=== PATIENT | female | born 1960 | race Two or more races ===

== ENCOUNTER 2022-11-03 19:38 | Emergency (ER) | payer OTHER, MEDICAID ==
[~2022-11-03] VITALS: Ht 167.6 cm; Wt 104.5 kg
[2022-11-03] MEDS ORDERED: diphenhdrAMINE HCL 50 MG/1 ML VL ONE (19:58)
[2022-11-03 19:59] VITALS: BP 89/46; PULSE 103; RESP 12; O2SAT 96
[2022-11-03] MEDS ORDERED: diphenhdrAMINE HCL 50 MG/1 ML VL IV ONE (20:00)
[2022-11-03] MEDS ORDERED: EPINEPHrine HCL 1 MG/1 ML AMP ONE (20:00)
[2022-11-03] MEDS ORDERED: EPINEPHrine HCL 0.5 ML NEB NEB ONE (20:00)
[2022-11-03] MEDS ORDERED: EPINEPHrine HCL 1 MG/1 ML AMP IM ONE (20:00)
[2022-11-03] MEDS ORDERED: DexAMETHasone SOD PHOS 10MG/1ML VIAL INJ IV ONE (20:00)
[2022-11-03 20:22] VITALS: RESP 20; O2SAT 95
[2022-11-03 20:29] LABS: Basophils # (auto) 0.1 10 ^3/uL (0-0.2); Basophils % (auto) 0.8 % (0.0-2.0); Eosinophils # (auto) 0.2 10 ^3/uL (0-0.8); Eosinophils % (auto) 1.8 % (0.0-7.0); Hematocrit 33.3 % (36.0-46.0); Hemoglobin 11.3 g/dL (12.2-16.2); Lymphocytes # (auto) 1.9 10 ^3/uL (0.4-5.4); Lymphocytes % (auto) 23.2 % (10.0-50.0); Mean Corpuscular Hgb Conc. 33.9 g/dL (32.0-36.0); Mean Corpuscular Volume 91.5 fL (80.0-100.0); Monocytes # (auto) 0.5 10 ^3/uL (0-1.3); Monocytes % (auto) 6.3 % (0.0-12.0); Neutrophils # (auto) 5.6 10 ^3/uL (1.6-8.6); Neutrophils % (auto) 67.9 % (37.0-80.0); Red Blood Cells 3.64 10^6/uL (4.0-5.20); Red Cell Distribution Width 14.9 % (11.8-14.3); White Blood Cell 8.2 10^3/uL (4.4-10.8)
[2022-11-03] MEDS ORDERED: ROCURONIUM 10MG/ML 10ML VIAL IV ONE (20:33)
[2022-11-03] MEDS ORDERED: fentaNYL Drip 2500mCg/250mlNS 250 ML IV ONE (20:34)
[2022-11-03] MEDS ORDERED: KETAMINE HCL 10 ML ONE (20:34)
[2022-11-03 20:38] LABS: Albumin 3.4 g/dL (3.4-5.0); Potassium 3.9 mmol/L (3.5-5.1)
[2022-11-03] MEDS ORDERED: NOREPINEPHRINE 8 MG/250ML KIT 250 ML IV ONE (20:41)
[2022-11-03 20:43] LABS: BUN/Creatinine Ratio 16.7 (10.0-20.0); Bilirubin, Total 0.3 mg/dL (0.2-1.0); Total Protein 7.8 g/dL (6.4-8.2)
[2022-11-03] MEDS ORDERED: SODIUM BICARBONATE 8.4% INJ 50ML SYRINGE ONE ×2 (21:02→21:15)
[2022-11-03] MEDS ORDERED: EPINEPHrine HCL 1 MG/10 ML SYRG ONE ×4 (21:15→21:35)
== END 2022-11-04 02:08 ==
LOC: ER 19:41
DX: R06.02 Shortness of breath (principal); K14.0 Glossitis; I10 Essential (primary) hypertension; E11.9 Type 2 diabetes mellitus without complications; Z88.0 Allergy status to penicillin
CPT/HCPCS: 31500; 36415; 80053; 85025; 86850; 86900; 86901; 92950; 94640; 96374; 96375; 99152; 99153; 99291; J0171; J1100; J1200